=== PATIENT | female | born 1975 | race Caucasian/White ===

== ENCOUNTER 2017-01-25 11:52 | Emergency (ER) | payer MEDICAID ==
[~2017-01-25] VITALS: Ht 162.6 cm; Wt 63.0 kg
[~2017-01-25 11:52] MED LIST: IBUP800T25; LEVO50TA64
[2017-01-25 11:54] VITALS: Ht 162.6 cm; Wt 63.0 kg
[2017-01-25] MEDS ORDERED: HC30CR25 TOP (13:39)
[2017-01-25 13:53] VITALS: BP 118/70; PULSE 78; RESP 18; TEMP 98.5
--- NOTE | 2017-01-25 15:20 | ERD ---
ER Documentation Chief Complaint Date/Time DATE: 01/25/17 TIME: 15:17 Chief Complaint POSSIBLE INSECT BITE ON RT CALF HPI 41-year-old female coming in complaining of a possible insect bite to her right calf. Patient states this happened 4 days ago. Rash is pruritic in nature. No purulence. No pain. Patient is on his medications for symptoms. No fevers. ROS All systems reviewed and are negative except as per history of present illness. Medications Home Meds Active Scripts Hydrocortisone* Topical (Hydrocortisone* Topical) 2.5%-28.3 Gm Cream..g., 1 APPLIC TOP BID, #1 TUB Prov:BLAYNE OLEA PA-C 01/25/17 Reported Medications Ibuprofen* (Motrin*) 800 Mg Tab, PRN 04/16/11 Levothyroxine Sodium (Levothroid) 50 Mcg Tablet, DAILY 04/16/11 Allergies Allergies: Coded Allergies: No Known Allergy (Unverified , 04/16/11) PMhx/Soc Medical and Surgical Hx: pt denies Medical Hx, pt denies Surgical Hx History of Surgery: No Anesthesia Reaction: No Hx Neurological Disorder: No Hx Respiratory Disorders: No Hx Cardiac Disorders: No Hx Psychiatric Problems: No Hx Miscellaneous Medical Probl: No Hx Alcohol Use: No Hx Substance Use: No Hx Tobacco Use: No Smoking Status: Never smoker Physical Exam Vitals Vital Signs Date Time Temp Pulse Resp B/P Pulse Ox O2 Delivery O2 Flow Rate FiO2 01/25/17 13:53 98.5 78 18 118/70 100 Room Air 01/25/17 11:54 98.3 80 18 123/79 99 Physical Exam GENERAL: The patient is well-appearing, well-nourished, in no acute distress CHEST: Clear to auscultation bilaterally. There are no rales, wheezes or rhonchi. HEART: Regular rate and rhythm. No murmurs, clicks, rubs or gallops. No S3 or S4. NEUROLOGIC: Alert and oriented. Cranial nerves II through XII intact. Motor strength in all 4 extremities with 5 out of 5 strength. Sensation grossly intact. Normal speech and gait. Babinski negative. DTR 2+ throughout. SKIN: 5 cm diameter erythematous papule on right posterior calf. No surrounding erythema or fluctuance. No purulence. No streaking. Procedures/MDM MDM: I have low suspicion for cellulitic infection. Patient has erythema secondary to insect bite I do not feel there is indication for antibiotics. I have low suspicion for deep space abscess. Low suspicion for necrotizing fasciitis or compartment syndrome. Low suspicion for lymphangitis. Patient be recommended to use topical hydrocortisone cream to reduce itching sensation. Patient is discharged with strict ER precautions. Departure Diagnosis: Primary Impression: Mosquito bite Condition: Stable Patient Instructions: Mosquito Bite Referrals: [facility] YOU HAVE RECEIVED A MEDICAL SCREENING EXAM AND THE RESULTS INDICATE THAT YOU DO NOT HAVE A CONDITION THAT REQUIRES URGENT TREATMENT IN THE EMERGENCY DEPARTMENT. FURTHER EVALUATION AND TREATMENT OF YOUR CONDITION CAN WAIT UNTIL YOU ARE SEEN IN YOUR DOCTORS OFFICE WITHIN THE NEXT 1-2 DAYS. IT IS YOUR RESPONSIBILITY TO MAKE AN APPOINTMENT FOR FOLOW-UP CARE. IF YOU HAVE A PRIMARY DOCTOR --you should call your primary doctor and schedule an appointment IF YOU DO NOT HAVE A PRIMARY DOCTOR YOU CAN CALL OUR PHYSICIAN REFERRAL HOTLINE AT IF YOU CAN NOT AFFORD TO SEE A PHYSICIAN YOU CAN CHOSE FROM THE FOLLOWING [facility] [address] [facility] [address] [address] [facility] [address] [facility] [address] [facility]. [facility]. [address] Additional Instructions: FOLLOW UP WITH YOUR PRIMARY CARE PHYSICIAN TOMORROW.Return to this facility if you are not improving as expected. BLAYNE OLEA PA-C Jan 25, 2017 15:20
== END 2017-01-25 13:54 | disposition home or self-care (01) ==
LOC: FTE 11:52
DX: S80.861A Insect bite (nonvenomous), right lower leg, initial encounter (principal); W57.XXXA Bitten or stung by nonvenomous insect and other nonvenomous arthropods, initial encounter; Y92.9 Unspecified place or not applicable
CPT/HCPCS: 99283

== ENCOUNTER 2018-04-09 21:31 | Emergency (ER) | END 2018-04-10 05:40 | disposition home or self-care (01) ==

== ENCOUNTER 2019-02-18 08:39 | Emergency (ER) | payer MEDICAID ==
[~2019-02-18] VITALS: Wt 79.0 kg
[~2019-02-18 08:39] MED LIST changes: +AMOX500C2 PO; +CEPH-443 PO; +CYCL10TA7 PO; +HC30CR25 TOP; +IBUP-1542 PO; -IBUP800T25; +IBUP800T48; +NITR-58 PO; +PHEN177S43 MT
[2019-02-18] MEDS ORDERED: IBUPROFEN 600 MG TAB PO ONE (09:30)
[2019-02-18 10:46] VITALS: BP 109/63; PULSE 71; RESP 18
== END 2019-02-18 10:48 | disposition home or self-care (01) ==
LOC: FTE 08:39
DX: M54.5 Low back pain (principal); E03.9 Hypothyroidism, unspecified
CPT/HCPCS: 72100; 81025; Z7502; Z7610